=== PATIENT | male | born 1985 | race Two or more races ===

== ENCOUNTER 2016-11-26 19:18 | Emergency (ER) | payer SELFPAY ==
[~2016-11-26] VITALS: Ht 185.4 cm; Wt 72.6 kg
[2016-11-26 19:23] VITALS: BP 130/80
[2016-11-26] MEDS ORDERED: IBUPROFEN 600 MG TABLET PO ONE ×2 (19:48→20:00)
== END 2016-11-26 20:32 | disposition home or self-care (01) ==
LOC: ER 19:25
DX: S16.1XXA Strain of muscle, fascia and tendon at neck level, initial encounter (principal); J45.909 Unspecified asthma, uncomplicated; Z88.0 Allergy status to penicillin; S29.012A Strain of muscle and tendon of back wall of thorax, initial encounter; V43.02XA Car driver injured in collision with other type car in nontraffic accident, initial encounter; Y93.89 Activity, other specified; Y92.488 Other paved roadways as the place of occurrence of the external cause; Y99.8 Other external cause status
CPT/HCPCS: 99282; A4606; Z7610